=== PATIENT | male | born 1975 | race African-American/Black ===

== ENCOUNTER 2018-03-31 08:11 | Observation (INO) | payer OTHER ==
[2018-03-31] MEDS ORDERED: Morphine 10 MG/ML VIAL ONE (09:34)
[2018-03-31 09:40] LABS: Troponin I Less than 0.010 ng/mL (< 0.028)
[2018-03-31 10:49] VITALS: BMI 38.2
[2018-03-31] MEDS ORDERED: Loperamide HCl 2 MG CAP PO PRN (10:55)
[2018-03-31] MEDS ORDERED: Senokot 8.6 MG TAB PO PRN (10:55)
[2018-03-31] MEDS ORDERED: Ondansetron ODT 4 MG TAB PO PRN (10:55)
[2018-03-31] MEDS ORDERED: Ondansetron HCl/PF 4 MG/2 ML Vial IVP PRN (10:55)
[2018-03-31] MEDS ORDERED: Milk Of Magnesia 30 ML UDCUP PO PRN (10:55)
[2018-03-31] MEDS ORDERED: Zolpidem Tartrate 5 MG TAB PO PRN (10:55)
[2018-03-31] MEDS ORDERED: Mag-Al 1200 mg/1200 mg/30 ML UDCUP PO PRN (10:55)
[2018-03-31] MEDS ORDERED: HYDROcodone/Acetaminophen 5/325 mg Tablet PO PRN (10:55)
[2018-03-31] MEDS ORDERED: Acetaminophen 325 MG TAB PO PRN (10:55)
[2018-03-31 11:22] LABS: Cardiac Risk 4.1 (Less than 4.5)
--- NOTE | 2018-03-31 12:33 | SS ---
DATE OF ADMISSION: 03/31/2018 at 9 a.m. PRIMARY CARE PHYSICIAN: [facility] call admission. REASON FOR ADMISSION: Transfer from [facility] for chest pain. HISTORY OF PRESENT ILLNESS: A 42-year-old -[place] male who was brought from [facility] to local emergency room in [facility] for evaluation of syncope and chest pain. HOSPITAL COURSE: Patient was in [facility] area where he had syncopal episode and subsequen tly 911 was called and patient was brought to [facility]. Patient regained consciousness wit hin few seconds. Patient was also reporting that he was having intermittent chest pain for the last 3 days, but his chest pain was on the right side. It only radiated one time on the right upper extre mity. He was feeling intermittent nausea and diaphoresis. He denies any exertional chest pain. He denies any heaviness. He describes squeezing and sharp in nature. There is no relation of chest shyanne n with food, respiration or activity. He denies any cough. He denies any fever or chills. He denie s any constipation, diarrhea, melena or hematochezia. Patient reports that he has history of hypertension, but he was not taking medication. When he went to [facility] where he was hypertensive, his chest pain was subsided. He had routine b lood test done over there, it was everything unremarkable. He was sent to our emergency room for rul e out acute coronary syndrome. In our emergency room, patient's cardiac enzymes were negative. His EKG was normal. His telemetry m onitor was normal. He was not having any further chest pain. He denies any UTI symptoms. He denies any focal motor or sensory symptoms. He denies any seizure. He denies any headache. He denies any sore throat. REVIEW OF SYSTEMS: The following complete review of systems was negative, unless otherwise mentioned in the HPI or below: Constitutional: Weight loss or gain, ability to conduct usual activities. Skin: Rash, itching. Eyes: Double vision, pain. ENT/Mouth: Nose bleeding, neck stiffness, pain, tenderness. Cardiovascular: Palpitations, dyspnea on exertion, orthopnea. Respiratory: Shortness of breath, wheezing, cough, hemoptysis, fever or night sweats. Gastrointestinal: Poor appetite, abdominal pain, heartburn, nausea, vomiting, constipation, or diarr hea. Genitourinary: Urgency, frequency, dysuria, nocturia. Musculoskeletal: Pain, swelling. Neurologic/Psychiatric: Anxiety, depression. Allergy/Immunologic: Skin rash, bleeding tendency. Please see my HPI for pertinent positive and negative. All other review of systems reviewed and nega tive except as mentioned in the HPI. PAST MEDICAL HISTORY: History of hypertension, but not on any treatment, chronic low back pain, obes ity with BMI 38. PAST SURGICAL HISTORY: Reviewed and negative. PAST PSYCHIATRIC HISTORY: Reviewed and negative. SOCIAL HISTORY: Patient is smoking about 1 pack per day. He denies any alcohol abuse. He denies an y other illicit drug abuse. His urine drug screen positive for cannabinoids at [facility]. FAMILY HISTORY: Maternal side positive for hypertension, coronary artery disease, no family history of cancer or stroke. EMERGENCY ROOM COURSE: Initially at [facility], they started with nitro drip, but that drip was discontinued. In our emergency room, patient was given morphine 2 mg for pain. ALLERGIES: No known drug allergy. CURRENT HOME MEDICATIONS: Patient is on the following medications, but he was not taking medication. Soma 350 mg b.i.d., [place] 10 one tablet q.6 hourly p.r.n., lisinopril 20 mg p.o. daily. PHYSICAL EXAMINATION: VITAL SIGNS: On arrival, blood pressure 158/95, pulse 73, respiratory rate 12, temperature 97.5, sat uration 98% on room air, and weight 127 kilograms. GENERAL: The patient is currently alert, awake, in no acute distress. HEAD: Normocephalic, atraumatic. EYES: Pupils round, reactive to light. Extraocular muscle intact. ENT: Oropharynx within normal limits. Moist mucous membranes. No oral lesion, no pharyngeal erythe ma, no exudate. NECK: Supple, no JVD, no thyromegaly, no carotid bruit. No jugular venous distention. LUNGS: Clear to auscultation without any rhonchi or rales. CARDIAC: S1 and S2 regular without any murmur. ABDOMEN: Soft, bowel sounds present, nontender, and nondistended. No organomegaly, no mass, no supr apubic tenderness. BACK: Examination unremarkable. No CVA tenderness. EXTREMITIES: Upper extremity passive movement of all joints are normal. Lower extremity, no edema. Good peripheral pulsation. SKIN: No skin rash. HEMATOLOGICAL SYSTEM: No lymphadenopathy. PSYCHIATRIC: Normal affect. NEUROLOGIC: Nonfocal examination. CHEST WALL: The patient does have reproducible pain on the right side. SIGNIFICANT LABORATORY DATA AND IMAGING DATA: 1. BMP: Sodium 138, potassium 4.1, chloride 105, carbon dioxide 22, anion gap 15, BUN 9.5, creatini ne 1.0, and calcium 9.2. 2. LFT, alkaline phosphatase 59, AST 12, ALT 12, albumin 3.9. 3. CK 214, CK-MB 0.80, troponin less than 0.010. Troponin negative x2. BNP 51.9. 4. CBC: WBC 13.5, hemoglobin 15.5, platelet 181, INR 0.9. D-dimer negative 0.10. Urinalysis caty l. Urine drug screen negative. Alcohol level less than 10. 5. Currently, cardiac enzymes are negative. Triglyceride 122, cholesterol 134, LDL 77, and HDL 33. 6. Cardiogram, normal sinus rhythm within normal limits. Chest x-ray normal. ASSESSMENT AND PLAN/IMPRESSION: 1. Chest pain. Patient's chest pain description is non-anginal, most likely musculoskeletal pain. For benefit of doubt, we will do stress test for diagnostic reason. His troponin is negative x3. Hi s electrocardiogram is normal. D-dimer is also negative. At this point, we will perform stress test and if that test is negative, then we will consider discharging him back to [facility] later on today. 2. Tobacco abuse disorder. Smoking cessation counseling given. Healthy lifestyle measures discusse d with the patient. 3. Obesity with BMI 38. Dietary education given. Healthy lifestyle measures discussed with the pat ient. Weight loss education given. 4. Hypertension. The patient will resume lisinopril 20 mg p.o. daily. 5. Chronic low back pain. Patient will continue Soma 350 mg b.i.d. and [place] one tablet q.6 hourly p.r.n. 6. Deep venous thrombosis prophylaxis not needed because we are expecting discharge later on today. 7. Gastrointestinal prophylaxis, Pepcid 20 mg p.o. b.i.d. CONTRAINDICATIONS: None. CODE STATUS: Patient is FULL CODE. The patient does not have any surrogate decision maker. Disposi tion plan based on stress test result. DATE OF ADMISSION: 03/31/2018 DATE OF DISCHARGE: 03/31/2018 DIS[facility]GE DISPOSITION: [facility]. PRIMARY DISCHARGE DIAGNOSIS: Chest pain, ruled out acute coronary syndrome, likely musculoskeletal. SECONDARY DISCHARGE DIAGNOSES: Hypertension, medication noncompliance, chronic low back pain, obesit y with body mass index 38, tobacco abuse disorder. PRIMARY PROCEDURES/OPERATIONS: None. RADIOLOGICAL INVESTIGATION: Stress test. SIGNIFICANT LABORATORY DATA: Please see above. CONTRAINDICATIONS: None. CODE STATUS: FULL CODE. INPATIENT CONSULTANTS: None. ALLERGIES: No known drug allergy. DISCHARGE PLAN: Post hospital, patient will be discharged back to [facility]. HOSPITAL COURSE: Please see my HPI for further details. Patient will continue all his previous medi cations. The patient will be discharged later on today if stress test is done today and if this is negative. Patient's syncope is likely related with vasovagal syncope. Currently, we have completely excluded c ardiac etiology at all.
[2018-03-31] MEDS ORDERED: Nitroglycerin 2% Ointment 1 INCH/1 GM Packet TOP SCH (14:00)
--- NOTE | 2018-03-31 14:33 | NM ---
CARDIAC SPECT: HISTORY: A 42-year-old female with chest pain. TECHNIQUE: A myocardial perfusion scan is performed using a single-isotope 1-day protocol with Technetium 99m se stamibi. Eleven mCi were injected intravenously for the rest exam followed by 27 mCi for the stress study. Pharmacologic stress with LexiScan is monitored and interpreted by Dr. Darling. FINDINGS: Homogeneous tracer distribution is seen in the myocardial segments on stress and rest images without fixed or reversible defects. GATED SPECT LVEF: 50%. WALL MOTION EXAM: Normal. IMPRESSION: Normal myocardial perfusion scan. POS: [facility]
[2018-03-31 14:47] LABS: Troponin I Less than 0.010 ng/mL (< 0.028)
[2018-03-31] MEDS ORDERED: Regadenoson 0.4 MG/5 ML SYRINGE ONE (15:24)
[2018-03-31 15:38] VITALS: BP 178/91; TEMP 98.1
--- NOTE | 2018-03-31 17:53 | PDOC.EVN ---
Event Note - Event Note Event Note: stress test is negative his chest pain is musculoskeletal. he has continue his own pain meds and BP meds will discharge to [facility] see keisha croft
[2018-03-31] MEDS ORDERED: Famotidine 20 MG TAB PO SCH (21:00)
[2018-04-01] MEDS ORDERED: Aspirin 325 MG TAB PO SCH (09:00)
[2018-04-01] MEDS ORDERED: Lisinopril 20 MG TAB PO SCH (09:00)
== END 2018-03-31 18:16 ==
LOC: ERS 08:11 → 2SW 09:00
PROVIDERS: ADMIT Internal Medicine; ATTEND Internal Medicine
DX: R07.89 Other chest pain (principal); R55 Syncope and collapse; I10 Essential (primary) hypertension; G89.29 Other chronic pain; M54.5 Low back pain; F17.210 Nicotine dependence, cigarettes, uncomplicated; E66.9 Obesity, unspecified; Z68.38 Body mass index [BMI] 38.0-38.9, adult; Z79.899 Other long term (current) drug therapy; Z91.14 Patient's other noncompliance with medication regimen
CPT/HCPCS: 36415; 78452; 80061; 84484; 93005; 93017; 96365; 96375; A9500; G0378; J2270; J2785

== ENCOUNTER 2018-04-04 15:49 | Observation (INO) | payer OTHER ==
[2018-04-04 16:43] LABS: #Basophils 0.1 thou/uL (0.0-0.2); #Eosinphils 0.1 thou/uL (0.0-0.7); #Lymphocytes 3.9 thou/uL (1.20-3.40); #Monocytes 1.2 thou/uL (0.11-0.59); #Neutrophils 7.9 thou/uL (1.40-6.50); %Eosinophils 1.1 % (0.0-10.0); %Lymphocytes 29.2 % (21.0-51.0); %Monocytes 9.3 % (0.0-10.0); %Neutrophils 59.3 % (42.0-75.0); Hemoglobin 16.1 g/dL (14.0-18.0); Mean Corpuscular HGB CONC 33.3 g/dL (32.0-36.0); Mean Corpuscular Hemoglobin 29.6 pg (27.0-31.0); Mean Corpuscular Volume 88.8 fl (80.0-94.0); Mean Platelet Volume 7.9 fL (7.4-10.4); Platelet Count 240 thou/uL (130-400); RBC Distribution Width 13.5 % (11.5-14.5); Red Blood Cell (RBC) Count 5.45 mill/uL (4.70-6.10); White Blood Cell (WBC) Count 13.2 thou/uL (4.8-10.8)
[2018-04-04 17:03] LABS: ALT (SGPT) 21 U/L (8-55); AST (SGOT) 18 U/L (5-34); Albumin 4.1 g/dL (3.5-5.0); Alkaline Phosphatase 69 U/L (40-150); Anion Gap 12 mmol/L (10-20); BUN (Urea Nitrogen) 15 mg/dL (8.9-20.6); Bilirubin, Total 0.7 mg/dL (0.2-1.2); CK (CPK) 348 U/L (30-200); Calc. Creatinine Clearance 0 mL/min (70-130); Calcium 9.4 mg/dL (7.8-10.44); Carbon Dioxide 22 mmol/L (22-29); Chloride 106 mmol/L (98-107); Estimated GFR-MDRD 87; Globulin 3.8 g/dL (2.4-3.5); Glucose 105 mg/dL (70-105); Lipase 9 U/L (8-78); Protein, Total 7.9 g/dL (6.0-8.3); Sodium 136 mmol/L (136-145)
[2018-04-04 17:07] LABS: CKMB 0.9 ng/mL (0-6.6); Troponin I Less than 0.010 ng/mL (< 0.028)
--- NOTE | 2018-04-04 17:10 | RAD ---
PORTABLE UPRIGHT FRONTAL CHEST RADIOGRAPH 04/04/18 COMPARISON: None. HISTORY: Chest pain. FINDINGS: No pneumothorax, pleural fluid, focal consolidation or alveolar edema. Heart and mediastinal contours are grossly unremarkable. IMPRESSION: No acute findings. POS: [facility]
[2018-04-04] MEDS ORDERED: Nitroglycerin 2% Ointment 1 INCH/1 GM Packet ONE (17:13)
[2018-04-04] MEDS ORDERED: Acetaminophen 325 MG TAB PO PRN (19:50)
[2018-04-04 19:58] VITALS: BMI 37.0
[2018-04-04] MEDS ORDERED: Aspirin 325 MG TAB PO SCH (20:00)
[2018-04-04 20:21] LABS: Troponin I Less than 0.010 ng/mL (< 0.028)
[2018-04-04 23:06] LABS: Troponin I Less than 0.010 ng/mL (< 0.028)
[2018-04-04] MEDS ORDERED: HYDROcodone/Acetaminophen 10/325 mg Tablet PO PRN (23:25)
--- NOTE | 2018-04-05 00:36 | HP ---
PRIMARY CARE PHYSICIAN: The patient is from [facility]. REASON FOR ADMISSION: Chest pain. HISTORY OF PRESENT ILLNESS: A 42-year-old -[place] male who [facility] At that time, patient was hypertensive and he was not taking any medication for his hypertension. He was just arrested to [facility] and from there he was brought to ER for chest pain and syncope. During that admission, patient had a stress test which was normal and patient was disc harged on the same day. Today in the emergency room, he was brought to because of continuous complaint of chest pain. He was initially evaluated at [facility] where EKG and routine blood test was normal. Subs equently, he was transferred to our emergency room for further evaluation. Currently, patient's ches t pain has subsided. The patient was given 2 sublingual nitro during transport as well as the patien t was given aspirin. He describes that chest pain is sharp, stabbing, feeling associated dizziness, mild headache. He denies any radiation of pain. He denies any associated nausea, vomiting, diaphore sis. Today, his routine blood test showed negative cardiac enzymes x3 and all blood test is normal. When I saw this patient, at that time, patient was chest pain free. REVIEW OF SYSTEMS: The following complete review of systems was negative, unless otherwise mentioned in the HPI or below: Constitutional: Weight loss or gain, ability to conduct usual activities. Sk in: Rash, itching. Eyes: Double vision, pain. ENT/Mouth: Nose bleeding, neck stiffness, pain, ten derness. Cardiovascular: Palpitations, dyspnea on exertion, orthopnea. Respiratory: Shortness of breath, wheezing, cough, hemoptysis, fever or night sweats. Gastrointestinal: Poor appetite, abdomi nal pain, heartburn, nausea, vomiting, constipation, or diarrhea. Genitourinary: Urgency, frequency , dysuria, nocturia. Musculoskeletal: Pain, swelling. Neurologic/Psychiatric: Anxiety, depression . Allergy/Immunologic: Skin rash, bleeding tendency. Please see my HPI for pertinent positive and negative. All other review of system reviewed and negative except as mentioned in the HPI. PAST MEDICAL HISTORY: Chronic low back pain, hypertension, obesity. PAST SURGICAL HISTORY: Reviewed and negative. PAST PSYCHIATRIC HISTORY: Reviewed and negative. SOCIAL HISTORY: The patient has history of smoking about 1 pack per day. He denies any alcohol abus e. He denies any other illicit drug abuse. FAMILY HISTORY: Mother has history of pacemaker. No strong family history of premature coronary art roger disease, stroke, or cancer. EMERGENCY ROOM COURSE: The patient is given nitro patch and IV fluid. The patient was given nitrogl ycerin sublingual and aspirin on the transport. ALLERGIES: No known drug allergy. CURRENT HOME MEDICATIONS: Soma 350 mg p.o. b.i.d., [place] 10 one tablet q.6 hourly p.r.n., lisinopril 10 mg p.o. daily. PHYSICAL EXAMINATION: VITAL SIGNS: On arrival, blood pressure 150/95, pulse 101, respiratory rate 18, temperature 98.7, sa turation 97% on room air, weight 127 kilograms. GENERAL: The patient is currently alert, awake, no acute distress. HEENT: Head normocephalic, atraumatic. Eyes: Pupils round, reactive to light. Extraocular muscle intact. ENT: Oropharynx within normal limits. Moist mucous membrane, no oral lesion, no pharyngeal erythema , no exudate. NECK: Supple, no JVD, no thyromegaly, no carotid bruit, no jugular venous distention. LUNGS: Clear to auscultation without any rhonchi or rales. CARDIAC: S1, S2 regular without any murmur. ABDOMEN: Soft, obesity present. Bowel sounds present, nontender, nondistended. No organomegaly, no mass, no suprapubic tenderness. BACK: Unremarkable, no CVA tenderness. EXTREMITIES: Upper extremities: Passive movement of all joints are normal. Lower extremities: No edema. Good peripheral pulsation, no calf tenderness. SKIN: No skin rash. HEMATOLOGICAL SYSTEM: No lymphadenopathy. PSYCHIATRIC: Normal affect. SIGNIFICANT LABORATORY DATA: CBC: WBC 13.2, hemoglobin 16.1, platelet 240. BMP: Sodium 136, potas sium 4.0, chloride 106, carbon dioxide 22, BUN 15, creatinine 1.13, glucose 105, calcium 9.4. LFT: AST 18, ALT 21, alkaline phosphatase 69, albumin 4.1. CK 348. Cardiac enzymes negative x3. BNP les s than 10. Lipase 9. ASSESSMENT AND PLAN/IMPRESSION: 1. Chest pain. This patient's chest pain description is completely nonspecific. He has a little bi t reproducible discomfort on the left side of the chest. He had negative stress test just few days a go and currently he has 3 negative cardiac enzymes. This patient may have underlying drug seeking be havior. The patient does have chronic pain disorder. At this point, this patient does not need any more investigation. We will consider discharging him home early in the morning back to intermediate. 2. Hypertension. We will continue lisinopril 10 mg p.o. daily. 3. Obesity with BMI of 37. Diet reeducation given, weight loss education given. 4. Chronic pain disorder. The patient will continue his pain medications, Soma 350 mg p.o. b.i.d. a nd [place] 10 one tablet q.6 hourly p.r.n. for pain. 5. Deep venous thrombosis prophylaxis not needed because we are expecting discharge tomorrow. 6. Gastrointestinal prophylaxis, Pepcid 20 mg p.o. b.i.d. 7. Code status: The patient is FULL CODE. The patient does not have any surrogate decision maker. Disposition plan, we will consider discharging him early in the morning, tomorrow morning. I doubt h e needs any more investigation at this point.
[2018-04-05] MEDS ORDERED: Zolpidem Tartrate 5 MG TAB PO PRN (02:12)
[2018-04-05] MEDS ORDERED: Senokot 8.6 MG TAB PO PRN (02:12)
[2018-04-05] MEDS ORDERED: Acetaminophen 325 MG TAB PO PRN (02:12)
[2018-04-05] MEDS ORDERED: Ondansetron ODT 4 MG TAB PO PRN (02:12)
[2018-04-05] MEDS ORDERED: Loperamide HCl 2 MG CAP PO PRN (02:12)
[2018-04-05] MEDS ORDERED: Milk Of Magnesia 30 ML UDCUP PO PRN (02:12)
[2018-04-05] MEDS ORDERED: Ondansetron HCl/PF 4 MG/2 ML Vial IVP PRN (02:12)
[2018-04-05] MEDS ORDERED: Mag-Al 1200 mg/1200 mg/30 ML UDCUP PO PRN (02:12)
[2018-04-05] MEDS ORDERED: Lisinopril 20 MG TAB PO SCH (09:00)
[2018-04-05] MEDS: Famotidine 20 MG TAB PO SCH ×2 (09:32→20:41)
[2018-04-05 10:30] LABS: Amphetamine Not Detected (NotDetected); Barbiturates Screen Not Detected (NotDetected); Benzodiazepine Screen Not Detected (NotDetected); Cocaine Metabolite Screen Not Detected (NotDetected); Medtox Control Line Valid? VALID (VALID); Medtox Reader # READER 1; Methadone Not Detected (NotDetected); Methamphetamine Not Detected (NotDetected); Opiate Screen Not Detected (NotDetected); Oxycodone Screen Not Detected (NotDetected); Phencyclidine (PCP) Not Detected (NotDetected); THC/Cannabinoid Screen Detected (NotDetected); Tricyclic Screen Not Detected (NotDetected)
--- NOTE | 2018-04-05 16:28 | PDOC.PN ---
- Subjective Encounter Start Date: 04/05/18 Encounter Start Time: 11:00 Pt seen for followup re: chest pain. Denies chest pain, shortness of breath, fevers or chills. - Objective Resuscitation Status: Resuscitation Status FULL:Full Resuscitation MAR Reviewed: Yes Vital Signs & Weight: Vital Signs (12 hours) Temp Pulse Resp BP BP Pulse Ox 04/05/18 15:36 97.9 F 83 16 141/86 H 100 04/05/18 11:00 98.2 F 92 12 140/86 97 04/05/18 09:31 125/67 04/05/18 08:00 98.2 F 92 12 04/05/18 07:42 97.9 F 84 18 125/67 98 I&O: 04/04/18 04/05/18 04/06/18 06:59 06:59 06:59 Intake Total 240 480 Output Total 350 Balance -110 480 Result Diagrams: 04/04/18 16:34 04/04/18 16:34 EKG Reviewed by me: Yes (Tele: NSR, lateral T wave inversions) Phys Exam - Physical Examination Obese HEENT: moist MMs, sclera anicteric, oral pharynx no lesions, 2+ tonsils Neck: no nodes, no JVD, supple, full ROM Respiratory: no wheezing, no rales, no rhonchi, clear to auscultation bilateral Cardiovascular: RRR, no rub S1, S2 Gastrointestinal: soft, non-tender, no distention, positive bowel sounds Neurological: moves all 4 limbs Psychiatric: normal affect Dx/Plan (1) Chest pain Code(s): R07.9 - CHEST PAIN, UNSPECIFIED Status: Acute Comment: Etiology unclear. Pt had normal stress test a few days ago. However, he does have new T wave inversions. Consult cardiology for opinion and help with management. (2) Rhabdomyolysis Code(s): M62.82 - RHABDOMYOLYSIS Status: Acute Comment: IV hydration and recheck CK level. Renal function is normal. (3) Hypertension Code(s): I10 - ESSENTIAL (PRIMARY) HYPERTENSION Status: Chronic Comment: controlled (4) Obesity (BMI 30-39.9) Code(s): E66.9 - OBESITY, UNSPECIFIED Status: Chronic Comment: stable - Plan * . Review of Systems - Review of Systems Constitutional: negative: fever, chills, sweats, weakness, malaise Respiratory: negative: Cough, Shortness of Breath, SOB with Excertion, Pleuritic Pain, Wheezing Cardiovascular: negative: chest pain, palpitations, orthopnea, paroxysmal nocturnal dyspnea, edema, light headedness Gastrointestinal: negative: Nausea, Vomiting, Abdominal Pain, Diarrhea, Constipation, Melena, Hematochezia Genitourinary: negative: Dysuria, Frequency, Incontinence, Hematuria, Retention Skin: negative: Rash, Lesions, Darryl, Bruising - Medications/Allergies Allergies/Adverse Reactions: Allergies Allergy/AdvReac Type Severity Reaction Status Date / Time No Known Allergies Allergy Verified 04/04/18 20:06 Medications: Current Medications Acetaminophen (Tylenol) 650 mg PO Q4H PRN PRN Reason: Headache/Fever or Pain Last Admin: 04/05/18 04:22 Dose: 650 mg Hydrocodone Bitart/Acetaminophen ([place] 10/325) 1 tab PO Q6H PRN PRN Reason: Pain Al Hydroxide/Mg Hydroxide (Maalox) 30 ml PO Q6H PRN PRN Reason: Heartburn or Indigestion Carisoprodol (Soma) 350 mg PO BID [facility] Last Admin: 04/05/18 09:31 Dose: 350 mg Famotidine (Pepcid) 20 mg PO BID [facility] Last Admin: 04/05/18 09:32 Dose: 20 mg Lisinopril (Zestril) 10 mg PO DAILY [facility] Last Admin: 04/05/18 09:31 Dose: 10 mg Loperamide HCl (Imodium) 2 mg PO PRN PRN PRN Reason: Diarrhea/Loose Stools Magnesium Hydroxide (Milk Of Magnesium) 30 ml PO DAILYPRN PRN PRN Reason: Constipation Ondansetron HCl (Zofran Odt) 4 mg PO Q6H PRN PRN Reason: Nausea/Vomiting Ondansetron HCl (Zofran) 4 mg IVP Q6H PRN PRN Reason: Nausea/Vomiting Senna (Senokot) 2 tab PO HSPRN PRN PRN Reason: Constipation Zolpidem Tartrate (Ambien) 5 mg PO HSPRN PRN PRN Reason: Insomnia
[2018-04-05] MEDS ORDERED: Sodium Chloride 0.9% 1,000 ML IV SCH ×2 (16:30→20:00)
--- NOTE | 2018-04-05 19:15 | CON ---
DATE OF CONSULTATION: 04/05/2018 CARDIOLOGY CONSULTATION REASON FOR CONSULTATION: Chest pain. HISTORY OF PRESENT ILLNESS: Mr. Laird is a 42-year-old man. He was brought here for chest pain on 10/2017. The pain was atypical for angina. He underwent stress testing which was normal. Ejection fraction is estimated at 50%, normal myocardial perfusion scan. Then, a normal stress and rest. The patient does have history of hypertension. He was brought back to the hospital here with recurre nt chest pain and he said it is sharp, it is very well localized. He points to very small area in th e lower substernal area. He said that it is sharp and negative as mentioned is localized to that one small area did not have pressure, heaviness, or squeezing typical of angina. He is feeling fine now. PAST MEDICAL HISTORY: History of hypertension. He said has been difficult to control. SOCIAL HISTORY: Currently incarcerated. ALLERGIES: None known. SOCIAL HISTORY: Smokes one pack of cigarettes per day. PHYSICAL EXAMINATION: GENERAL: This is a large statured gentleman, 6 feet 1 inches tall, 280 pounds. HEENT: Sclerae nonicteric. Mouth mucous membranes moist. NECK: Supple, no lymphadenopathy. LUNGS: Clear, no wheezing, rales or rhonchi. CARDIAC: Normal S1, normal S2. There is no murmur, rub or gallop. ABDOMEN: Soft, nontender, no hepatosplenomegaly. EXTREMITIES: Warm, dry, no clubbing or cyanosis. There is no edema. Peripheral pulses are intact p edal and dorsalis pedis pulses bilaterally. PERTINENT LABORATORY DATA: The LDL cholesterol was 77. Troponin levels were all normal. BNP was no rmal. An EKG from 03/30/2018 which was within normal limits. That was done at 20:29 on the EKG yest erday, there was some T-wave inversion in lead II, aVF and biphasic T waves in V4, V5, V6 which is pr esent on the followup EKG yesterday and then somewhat better today, but still present, as mentioned e nzymes are all normal. ASSESSMENT: 1. History of hypertension. 2. Chest pain, somewhat atypical for angina. 3. EKG changes of uncertain significance could potentially be ischemia, but it would seem less likel y with normal troponin levels and normal perfusion scan with atypical chest pain at age 42. Also, hi s cholesterol level is not elevated. Could also be related to left ventricular hypertrophy. PLAN: I discussed this with the gentleman could proceed two cardiac catheterizations for definitive diagnosis. I discussed the risk of stroke, heart attack, iodine allergy, loss of blood supply to the leg or kidney, explained to him that this is low risk, but it is a potential complication of cardiac catheterization that did explain to him the cardiac catheterization is the most definitive test to t ell for sure whether he has coronary disease. The patient does not wish to have that done. Therefor e, we will do the followin. We will reduce YAYA inhibitor. He says he has a cough and it does not seem to be controlling his blood pressure well, also when he gets high. It seems to have blood draw make him lightheaded. 2. Add amlodipine 5 mg a day. 3. Echocardiogram to see if he has left ventricular hypertrophy on echocardiogram. If he indeed has significant LVH that would be further evidence that is what is causing his EKG changes. As mentione d, he declines cardiac catheterization.
[2018-04-05 20:04] VITALS: BP 144/94; TEMP 97.5
[2018-04-06] MEDS ORDERED: Lisinopril 5 MG TAB PO SCH (09:00)
[2018-04-06] MEDS ORDERED: Amlodipine 5 MG TAB PO SCH (09:00)
--- NOTE | 2018-04-07 02:29 | DIS ---
DATE OF ADMISSION: 04/04/2018 The patient left against medical advice on 04/05/2018. PRIMARY CARE PROVIDER: Unknown. CONSULTATIONS DURING THIS HOSPITALIZATION: Cardiology, Dr. Pringle. HOSPITAL COURSE: Mr. Laird is a pleasant 42-year-old gentleman who was admitted to [facility] on 04/04/2018 for chest pain. He was monitored on telemetry. He had normal troponin levels. Because of concern over EKG changes, he was seen by Cardiology Service. Cardiology Service recommended cardiac catheterization. The patient did not wish to have cardiac catheterization. He left the hospital against medical advice on 04/05/2018.
== END 2018-04-05 20:44 | disposition left against medical advice (07) ==
LOC: ERS 15:49 → 2SW 19:41
PROVIDERS: ADMIT Internal Medicine; ATTEND Internal Medicine
DX: R07.9 Chest pain, unspecified (principal); Z53.21 Procedure and treatment not carried out due to patient leaving prior to being seen by health care provider; I10 Essential (primary) hypertension; F17.210 Nicotine dependence, cigarettes, uncomplicated; M62.82 Rhabdomyolysis; E66.9 Obesity, unspecified; G89.29 Other chronic pain; Z79.899 Other long term (current) drug therapy; Z68.37 Body mass index [BMI] 37.0-37.9, adult
CPT/HCPCS: 36415; 71045; 80053; 80306; 82553; 83690; 83880; 84484; 85025; 85379; 93005; 93010; 96360; 96361; G0378

== ENCOUNTER 2019-01-06 22:19 | Observation (INO) | payer OTHER ==
[2019-01-06] MEDS ORDERED: Nitroglycerin 2% Ointment 1 INCH/1 GM Packet ONE (22:33)
[2019-01-06] MEDS ORDERED: Morphine 4 MG/ML VIAL ONE (22:33)
[2019-01-06 23:37] LABS: #Basophils 0.2 thou/uL (0.0-0.2); #Eosinphils 0.1 thou/uL (0.0-0.7); #Lymphocytes 5.3 thou/uL (1.20-3.40); #Neutrophils 7.9 thou/uL (1.40-6.50); %Basophils 1.3 % (0.0-1.0); %Eosinophils 0.9 % (0.0-10.0); %Lymphocytes 36.4 % (21.0-51.0); %Monocytes 6.7 % (0.0-10.0); %Neutrophils 54.8 % (42.0-75.0); Hemoglobin 14.9 g/dL (14.0-18.0); Mean Corpuscular HGB CONC 31.1 g/dL (32.0-36.0); Mean Corpuscular Hemoglobin 28.5 pg (27.0-31.0); Mean Corpuscular Volume 91.5 fL (78.0-98.0); Mean Platelet Volume 8.6 fL (7.4-10.4); Platelet Count 215 thou/uL (130-400); RBC Distribution Width 12.8 % (11.5-14.5); Red Blood Cell (RBC) Count 5.22 mill/uL (4.70-6.10); White Blood Cell (WBC) Count 14.5 thou/uL (4.8-10.8)
[2019-01-06 23:43] LABS: INR-International Normal Ratio 1.1; PTT 30.2 SEC (22.9-36.1); Prothrombin Time 13.8 SEC (12.0-14.7)
[2019-01-06 23:59] LABS: ALT (SGPT) 13 U/L (8-55); AST (SGOT) 9 U/L (5-34); Albumin 3.9 g/dL (3.5-5.0); Alkaline Phosphatase 63 U/L (40-150); Anion Gap 12 mmol/L (10-20); BUN (Urea Nitrogen) 12 mg/dL (8.9-20.6); Bilirubin, Total 1.5 mg/dL (0.2-1.2); Calc. Creatinine Clearance 0 mL/min (70-130); Calcium 9.4 mg/dL (7.8-10.44); Carbon Dioxide 25 mmol/L (22-29); Chloride 105 mmol/L (98-107); Estimated GFR-MDRD 90; Globulin 3.4 g/dL (2.4-3.5); Glucose 87 mg/dL (70-105); Potassium 4.1 mmol/L (3.5-5.1); Protein, Total 7.3 g/dL (6.0-8.3); Sodium 138 mmol/L (136-145)
[2019-01-07 00:02] LABS: Troponin I Less than 0.010 ng/mL (< 0.028)
[2019-01-07] MEDS ORDERED: Morphine 4 MG/ML VIAL SLOW IVP PRN (03:18)
[2019-01-07 03:45] LABS: Troponin I Less than 0.010 ng/mL (< 0.028)
[2019-01-07] MEDS ORDERED: Nitroglycerin 0.4 MG TAB (25 Tab Bottle) PO PRN (04:32)
[2019-01-07] MEDS ORDERED: Ondansetron ODT 4 MG TAB PO PRN (04:33)
[2019-01-07] MEDS ORDERED: Senokot S 8.6-50 MG TAB PO PRN (04:33)
[2019-01-07] MEDS ORDERED: Acetaminophen 325 MG TAB PO PRN (04:33)
[2019-01-07] MEDS ORDERED: Calcium Carbonate 500 MG ChewTAB PO PRN (04:33)
[2019-01-07] MEDS ORDERED: Ondansetron PF 4 MG/2 ML Vial IVP PRN (04:33)
[2019-01-07] MEDS ORDERED: Labetalol HCl 100 MG/20 ML VIAL SLOW IVP PRN (04:35)
[2019-01-07] MEDS ORDERED: cloNIDine 0.1 MG TAB PO PRN (04:35)
--- NOTE | 2019-01-07 05:15 | HP ---
CHIEF COMPLAINT: Chest discomfort. HISTORY OF PRESENT ILLNESS: The patient is a 43-year-old male with hypertension and negative stress test last year, presented to the emergency room with chest discomfort. In March 2018, the patient was admitted at this facility with chest discomfort. His troponins were negative. He underwent Cardiolite stress test that was negative for reversible ischemia. Ejection fraction was 50% without any wall motion abnormality. He was subsequently discharged home. Four days later, the patient presented to the hospital with chest discomfort. He was evaluated by Cardiology, Dr. Pringle. Dr. Pringle recommended a cardiac catheterization due to ongoing chest discomfort. However, the patient left against medical advice. The patient is currently incarcerated over the last week. He presented to [facility] [address] with chest discomfort that has been ongoing for last year or so. His chest discomfort has got worse over the last 2 months. He also has associated nausea with one episode of vomiting earlier today. He gets intermittent palpitations during this episode. No diaphoresis or syncope reported. He denies any exertional dyspnea, paroxysmal nocturnal dyspnea, or leg swelling. The pain radiates to his left arm. It is moderate in intensity, substernal, dull in nature. He denies recent immobilization travel or history of thromboembolism. In the emergency room at [facility], his EKG showed sinus rhythm with nonspecific ST-T wave changes especially in lateral leads. His troponin was negative. His initial vital signs showed temperature 97.2, systolic blood pressure 155 with diastolic blood pressure of 87, pulse rate of 85 with respirations of 18, O2 saturation 100% on room air. He received Zofran with nitroglycerin patch in the emergency room. His D-dimer was less than 0.27. The patient had a near syncopal episode at the shelter today, for which he was brought to the emergency room. PAST MEDICAL HISTORY: 1. Hypertension. 2. Obesity with a BMI of 34.2. 3. Chronic low back pain. 4. Negative Cardiolite stress test last year. PAST SURGICAL HISTORY: Reviewed with the patient and none. ALLERGIES: NO KNOWN DRUG ALLERGIES. CURRENT HOME MEDICATION: Lisinopril 10 mg p.o. daily. SOCIAL HISTORY: The patient is currently incarcerated over the last week. He smokes up to one pack a day. Denies any alcohol or drug abuse. He has a history of cannabis abuse. FAMILY HISTORY: Mother has pacemaker. He denies any premature coronary artery disease in his family. REVIEW OF SYSTEMS: All other review of systems were reviewed and were found negative. PHYSICAL EXAMINATION: VITAL SIGNS: As discussed above. GENERAL: A 43-year-old male, in no apparent distress. Chest discomfort has improved after nitroglycerin patch. HEENT: Head, atraumatic and normocephalic. Sclerae anicteric. Moist mucous membranes. No oral lesion. NECK: Supple. No JVD. No carotid bruits. LUNGS: Clear to auscultation bilaterally. No wheezing, rales, or rhonchi. HEART: S1 and S2 present. Regular rate and rhythm. No murmurs, rubs, or gallops appreciated. ABDOMEN: Soft, bowel sounds present. No rebound or guarding. No costovertebral angle tenderness. EXTREMITIES: No edema or calf tenderness. NEUROLOGIC: Grossly nonfocal, moves all 4 extremities. PSYCHIATRIC: Alert, awake, oriented x3. SKIN: Warm and dry. LYMPH NODES: No palpable lymph nodes in the neck. PERIPHERAL VASCULAR: Radial pulses palpable bilaterally. MUSCULOSKELETAL: No joint swelling, or tenderness. LABORATORY FINDINGS: Sodium 138, potassium 4.4, chloride 104, bicarb 25, BUN 13.2, creatinine 1.2. LFTs in normal range. Troponin was negative. WBC count of 15 with hemoglobin 15.5, hematocrit 47.1, platelet of 252. EKG by my review as discussed above. Chest x-ray was probably not done at [facility]. IMPRESSION: 1. Chest discomfort with near syncope, rule out acute coronary syndrome. 2. Hypertension. 3. Obesity with a BMI of 34.2. 4. Cannabis abuse. 5. Ongoing tobacco abuse. 6. Medication noncompliance. 7. Negative Cardiolite stress test last year. PLAN: The patient will be monitored on the telemetry unit. We will obtain serial troponin. Echocardiogram will be obtained. We will get a chest x-ray due to mild leukocytosis. We will recheck CBC in a.m. Lifestyle modification was emphasized. We will consider cardiology consultation if his chest pain persists. Plan of care was discussed with the patient. He stated understanding. Job ID: [id number]
[2019-01-07 07:34] LABS: Troponin I Less than 0.010 ng/mL (< 0.028)
[2019-01-07 07:49] LABS: Bilirubin Negative (Negative); Blood, Urine Negative (Negative); Clarity CLEAR (Clear); Glucose, Urine (Dipstick) Negative (Negative); Leukocyte Moderate (Negative); Nitrite Negative (Negative); Protein, Urine (Dipstick) Negative (Neg-Trace)
[2019-01-07 07:52] LABS: Hyaline Casts/LPF 4-6 HYALINE CAST LPF (0-3 Hyaline); Pathc Cast-AUWi Flag 0.27 (0-2.49); RBC/HPF 0-3 HPF (0-3); Squamous Epithelial 0-3 HPF (0-3)
[2019-01-07] MEDS ORDERED: Carvedilol 3.125 MG TAB PO SCH (08:00)
[2019-01-07] MEDS ORDERED: Lisinopril 10 MG TAB PO SCH (09:00)
[2019-01-07] MEDS ORDERED: Enoxaparin Sodium 40 MG/0.4 ML SYRINGE SC SCH (09:00)
[2019-01-07] MEDS ORDERED: Famotidine 20 MG TAB PO SCH (09:00)
[2019-01-07] MEDS ORDERED: Aspirin 325 mg Enteric Coated Tablet PO SCH (09:00)
[2019-01-07] MEDS ORDERED: Aspirin 325 MG TAB PO SCH (09:00)
[2019-01-07 09:05] LABS: Bacteria/HPF Rare-Few HPF (None Seen)
[2019-01-07 09:06] LABS: Yeast-All Forms None Seen HPF (None Seen)
--- NOTE | 2019-01-07 09:55 | RAD ---
SINGLE VIEW OF THE CHEST: COMPARISON: 04/04/2018. HISTORY: Chest pain. FINDINGS: Single view of the chest shows a normal sized cardiomediastinal silhouette. There is no evidence of c onsolidation, mass, or pleural effusion. The bones are unremarkable. IMPRESSION: No evidence of acute cardiopulmonary disease. POS: [facility]
[2019-01-07] MEDS ORDERED: Iopamidol 370 76% 100 ML VIAL ONE (10:12)
[2019-01-07] MEDS ORDERED: Adenosine 6 MG/2 ML VIAL ONE (10:56)
[2019-01-07] MEDS ORDERED: Nitroglycerin 100MG/250ML BOT 250 ML ONE (10:56)
[2019-01-07] MEDS ORDERED: Verapamil 5 MG/2 ML VIAL ONE (10:56)
[2019-01-07] MEDS ORDERED: Heparin 10,000 UNITS/1 ML VIAL ONE (10:56)
[2019-01-07] MEDS ORDERED: Midazolam HCl 2 mg/2 ml Vial ONE (11:50)
[2019-01-07] MEDS ORDERED: Fentanyl 100 MCG/2 ML VIAL ONE (11:51)
--- NOTE | 2019-01-07 12:37 | CON ---
DATE OF CONSULTATION: REASON FOR CONSULTATION: Recurrent chest pain. HISTORY OF PRESENT ILLNESS: Mr. Laird is a 43-year-old gentleman with recurrent chest pain. He states the pain lasted for several minutes. It is [id number] in nature. He has a previous history of tobacco abuse. He underwent a noninvasive stress study and was evaluated by Dr. Chelly Pringle in March 2018. His stress study at that time was negative. PAST MEDICAL HISTORY: Hypertension, obesity, chronic low back pain, tobacco abuse. ALLERGIES: NONE. HOME MEDICATIONS: Lisinopril. SOCIAL HISTORY: As above. He is currently incarcerated over the last week. FAMILY HISTORY: Negative for CAD. REVIEW OF SYSTEMS: Recent 10-point review of systems is reviewed and as above, otherwise negative. PHYSICAL EXAMINATION: GENERAL: Patient is a pleasant gentleman, who is in no acute distress. The patient appears their stated age. VITAL SIGNS: Blood pressure 122/77, pulse 75, temperature 97.4. NEUROLOGIC: The patient is alert and oriented x3 with no focal neurologic deficits. HEENT: Sclerae without icterus. Mouth has moist mucous membranes with normal pallor. NECK: No JVD. Carotid upstroke brisk. No bruits bilaterally. LUNGS: Clear to auscultation with unlabored respirations. BACK: No scoliosis or kyphosis. CARDIAC: Regular rate and rhythm with normal S1 and S2. No S3 or S4 noted. No significant rubs, murmurs, thrills, or gallops noted throughout the precordium. PMI is not displaced. There is no parasternal heave. ABDOMEN: Soft, nontender, nondistended. No peritoneal signs present. No hepatosplenomegaly. No abnormal striae. EXTREMITIES: 2+ femoral and 2+ dorsalis pedis pulses. No cyanosis, clubbing, or edema. SKIN: No gross abnormalities. PERTINENT LABORATORY DATA: CK and troponin, negative. EKG shows normal sinus rhythm with ST wave changes suggesting LVH. IMPRESSION: Chest pain. RECOMMENDATIONS: At this point, the patient has had a stress study within the last year. He continues to have hospitalizations for the above. We therefore recommend medical therapy versus coronary angiography. I am concerned about medical therapy given recurrent symptoms. We would therefore recommend coronary angio. I discussed proceeding in full detail with Mr. Laird. Risks included, but not limited to . All questions were answered given the above. He agrees to proceed with the above procedure. Job ID: [id number]
[2019-01-07 16:00] LABS: #Basophils 0.1 thou/uL (0.0-0.2); #Eosinphils 0.1 thou/uL (0.0-0.7); #Lymphocytes 3.6 thou/uL (1.20-3.40); #Monocytes 0.7 thou/uL (0.11-0.59); %Basophils 1.1 % (0.0-1.0); %Eosinophils 1.1 % (0.0-10.0); %Lymphocytes 28.4 % (21.0-51.0); %Monocytes 5.3 % (0.0-10.0); %Neutrophils 64.2 % (42.0-75.0); Hemoglobin 14.6 g/dL (14.0-18.0); Mean Corpuscular HGB CONC 31.4 g/dL (32.0-36.0); Mean Corpuscular Hemoglobin 29.1 pg (27.0-31.0); Mean Corpuscular Volume 92.7 fL (78.0-98.0); Mean Platelet Volume 8.3 fL (7.4-10.4); Platelet Count 217 thou/uL (130-400); White Blood Cell (WBC) Count 12.5 thou/uL (4.8-10.8)
[2019-01-07 16:30] VITALS: BP 126/75; TEMP 97.6
[2019-01-07] MEDS ORDERED: Atorvastatin Calcium 10 MG TAB PO SCH (21:00)
--- NOTE | 2019-01-13 09:24 | EKG ---
Test Reason : Blood Pressure : / mmHG Vent. Rate : 072 BPM Atrial Rate : 072 BPM P-R Int : 124 ms QRS Dur : 096 ms QT Int : 410 ms P-R-T Axes : 020 067 003 degrees QTc Int : 448 ms Normal sinus rhythm ST elevation, consider early repolarization, pericarditis, or injury Nonspecific ST and T wave abnormality Abnormal ECG Limited ST elevation V2, V3 Resolving T wave inversions II, III 2/10 chest pain Confirmed by BRAIN SIMPSON ([id number]), photograph editor SUKUMAR NAVA ([id number]) on 01/13/2019 9:23:45 AM Referred By: Confirmed By:BRAIN SIMPSON
== END 2019-01-07 16:59 | disposition home or self-care (01) ==
LOC: ERS 22:19 → ERHOLD 23:59 → INTOOBSV 23:59 → 2SW 01-07 01:35
PROVIDERS: ADMIT Internal Medicine; ATTEND Internal Medicine
PROC: 4A023N7 Measurement of Cardiac Sampling and Pressure, Left Heart, Percutaneous Approach (ICD-10-PCS; principal; 2019-01-07)
PROC: B2111ZZ Fluoroscopy of Multiple Coronary Arteries using Low Osmolar Contrast (ICD-10-PCS; 2019-01-07)
DX: R07.89 Other chest pain (principal); R55 Syncope and collapse; I10 Essential (primary) hypertension; G89.29 Other chronic pain; M54.5 Low back pain; F17.210 Nicotine dependence, cigarettes, uncomplicated; F12.10 Cannabis abuse, uncomplicated; E78.00 Pure hypercholesterolemia, unspecified; E11.9 Type 2 diabetes mellitus without complications; E66.9 Obesity, unspecified; Z68.34 Body mass index [BMI] 34.0-34.9, adult; Z79.899 Other long term (current) drug therapy; Z91.14 Patient's other noncompliance with medication regimen
CPT/HCPCS: 36415; 71045; 80053; 81001; 84484; 85025; 85610; 85730; 93005; 93306; 93458; 94760; 96372; 96374; 99152; 99153; 99406; C1769; G0378; J0153; J1644; J1650; J2250; J2270; J3010; Q9967

== ENCOUNTER 2019-01-21 04:03 | Observation (INO) | payer OTHER ==
[2019-01-21] MEDS ORDERED: Aspirin Chewable 81 MG TAB ONE (04:27)
[2019-01-21] MEDS ORDERED: Nitroglycerin 50 MG/250 ML BOT 250 ML ONE (04:27)
[2019-01-21] MEDS ORDERED: Zolpidem Tartrate 5 MG TAB PO PRN (05:04)
[2019-01-21] MEDS ORDERED: Acetaminophen 325 MG TAB PO PRN (05:04)
[2019-01-21 07:49] LABS: Troponin I Less than 0.010 ng/mL (< 0.028)
[2019-01-21] MEDS ORDERED: Ondansetron ODT 4 MG TAB PO PRN (08:59)
[2019-01-21] MEDS ORDERED: Ondansetron PF 4 MG/2 ML Vial IVP PRN (08:59)
[2019-01-21] MEDS ORDERED: Nitroglycerin 0.4 MG TAB (25 Tab Bottle) PO PRN (08:59)
[2019-01-21] MEDS ORDERED: Calcium Carbonate 500 MG ChewTAB PO PRN (08:59)
[2019-01-21] MEDS ORDERED: Aspirin 325 mg Enteric Coated Tablet PO SCH (09:00)
[2019-01-21] MEDS ORDERED: Famotidine 20 MG TAB PO SCH (09:00)
[2019-01-21] MEDS ORDERED: Enoxaparin Sodium 40 MG/0.4 ML SYRINGE SC SCH (09:00)
--- NOTE | 2019-01-21 09:15 | PDOC.EVN ---
Event Note - Event Note Event Note: Cath was normal [address] Azevedo - Yoel beth NTG drip. Change to Observation/Tele
[2019-01-21] MEDS ORDERED: Famotidine 20 MG TAB ONE (09:21)
[2019-01-21] MEDS ORDERED: Lisinopril 10 MG TAB ONE (09:21)
[2019-01-21] MEDS ORDERED: Enoxaparin Sodium 40 MG/0.4 ML SYRINGE ONE (09:21)
--- NOTE | 2019-01-21 09:58 | HP ---
PRIMARY CARE PHYSICIAN: The patient is an inmate. CHIEF COMPLAINT: Chest discomfort. HISTORY OF PRESENT ILLNESS: The patient is a 43-year-old male with hypertension, obesity with a recent cardiac workup, presented to the emergency room with chest discomfort along with syncopal episode at the facility. The patient was admitted at this facility two weeks ago for chest discomfort. He underwent a cardiac cath and was subsequently discharged. The findings of cardiac cath is unavailable at this time. I do not see a discharge summary from that admission. Per the patient's report, he was found to have coronary artery disease; however, he declined stent placement. The patient was brought in to [facility] with chest discomfort that started around midnight. It was precordial, radiating to his left arm. He was diaphoretic and had a syncopal episode. The chest discomfort was pressure-like. He denies any aggravating or relieving factor. He also had some lower abdominal discomfort with a negative noncontrast CT scan at [facility]. His troponins were negative. EKG showed nonspecific ST-T wave changes in the inferior lead. He denies any diarrhea, constipation, recent immobilization, fever, or chills. PAST MEDICAL HISTORY: 1. Hypertension. 2. Obesity with a BMI of 34. 3. Negative Cardiolite stress last year. 4. Chronic low back pain. 5. Bipolar disorder. PAST SURGICAL HISTORY: Cardiac cath two weeks ago. Report unavailable at this time. ALLERGIES: NO KNOWN DRUG ALLERGIES. CURRENT HOME MEDICATIONS: The patient is unable to recall any of his home medications. He was discharged on: 1. Aspirin 325 mg daily. 2. Lipitor 10 mg q.h.s. 3. Carvedilol 3.125 mg b.i.d. 4. Pepcid 20 mg b.i.d. 5. Lisinopril 20 mg daily. SOCIAL HISTORY: The patient is an inmate. He has a history of tobacco smoking up to one pack a day. No alcohol or drug use. He also has a history of cannabis abuse. FAMILY HISTORY: Mother with pacemaker. He denies any premature coronary artery disease in his family. REVIEW OF SYSTEMS: The patient denies any focal deficit. All other review of systems were reviewed and were found negative. PHYSICAL EXAMINATION: VITAL SIGNS: On ER arrival; temperature 99.3, respirations of 20, pulse rate of 83, blood pressure of 204/161 with O2 saturation of 99% on room air. GENERAL: A 43-year-old male, in no apparent distress. Pain controlled with nitroglycerin drip. HEENT: Head, atraumatic and normocephalic. Sclerae are anicteric. Moist mucous membranes. No oral lesion. NECK: Supple. No JVD appreciated. No carotid bruit. LUNGS: Clear to auscultation bilaterally. No wheezing, rales, or rhonchi. HEART: S1 and S2 present. Regular rate and rhythm. No murmurs, rubs, or gallops appreciated. ABDOMEN: Soft. Mild tenderness in the suprapubic region. No rebound or guarding. No costovertebral angle tenderness. EXTREMITIES: No edema or calf tenderness. NEUROLOGIC: Grossly nonfocal. Moves all 4 extremities. PSYCHIATRY: Alert, awake, and oriented x3. SKIN: Warm and dry. LYMPH NODES: No palpable lymph nodes in the neck. PERIPHERAL VASCULAR: Radial pulses are palpable bilaterally. MUSCULOSKELETAL: No joint swelling tenderness. LABORATORY FINDINGS: WBC 14.1 with hemoglobin 13.8, hematocrit 44, and platelet count 228. Troponin negative. Sodium 138, potassium 4.5, chloride 102, bicarbonate 26, BUN is 10 with a creatinine 1.2. LFTs in the normal range. DIAGNOSTIC DATA: EKG by my review as discussed above. CT scan of the abdomen and pelvis noncontrast at [facility] as discussed above. IMPRESSION: 1. Chest discomfort consistent with unstable angina. The patient is currently on nitroglycerin drip. 2. Hypertensive emergency, on nitroglycerin drip. 3. Recurrent chest pain with recent cardiac catheterization. 4. Obesity with a BMI of 34. 5. Chronic low back pain. 6. Bipolar disorder. 7. History of tobacco abuse. 8. Cannabis abuse. 9. History of medication noncompliance in the past. 10. Chronic leukocytosis, unlikely to be infectious. PLAN: The patient will be monitored in the intensive care unit due to nitroglycerin drip. Cardiology will be consulted. We will continue carvedilol with lisinopril, aspirin and statins. We will keep him n.p.o. for now. Recheck labs in a.m. Plan of care was discussed with the patient in detail. He stated understanding. Job ID: [id number]
[2019-01-21 11:20] LABS: Troponin I Less than 0.010 ng/mL (< 0.028)
--- NOTE | 2019-01-21 13:01 | CT ---
CT PULMONARY ANGIOGRAM WITH IV CONTRAST AND 3D MIP RECONSTRUCTIONS: DATE: 01/21/2019. PROVIDED CLINICAL HISTORY: Chest pain. FINDINGS: There is insufficient opacification of the pulmonary arterial system for exclusion of pulmonary embol i. There is no evidence for large central pulmonary embolus. The heart, pericardium, and great vess els demonstrate an unremarkable CT appearance for the phase of contrast in which the study was acquir ed. There is no evidence for thoracic lymph node enlargement. The airway appears patent and of normal ca liber. No pleural fluid or pneumothorax apparent. The lungs are free of significant opacity. The v isualized portions of the upper abdomen appear unremarkable. The osseous structures demonstrate no c oncerning osteoblastic or osteolytic lesions. IMPRESSION: Limited study without evidence for an acute abnormality. POS: [facility]
[2019-01-21] MEDS ORDERED: Iopamidol 370 76% 100 ML VIAL ONE (14:11)
[2019-01-21 15:32] VITALS: BMI 35.4
[2019-01-21] MEDS: Carvedilol 3.125 MG TAB PO SCH ×2 (15:57→17:22)
[2019-01-21] MEDS: Lisinopril 10 MG TAB PO SCH (15:58)
[2019-01-21] MEDS: Sodium Chloride 0.9% 500 ML IV SCH ×2 (15:59→20:46)
[2019-01-21] MEDS: Nitroglycerin 2% Ointment 1 INCH/1 GM Packet TOP SCH ×2 (17:23→22:24)
[2019-01-21] MEDS ORDERED: Amlodipine 10 MG TAB PO SCH (18:45)
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
[2019-01-21] MEDS ORDERED: Atorvastatin Calcium 10 MG TAB PO SCH (21:00)
--- NOTE | 2019-01-21 22:43 | CON ---
DATE OF CONSULTATION: 01/21/2019 INDICATION FOR CONSULTATION: A 43-year-old patient with chest pain and syncope. Please refer to the notes already dictated by the nurse practitioner for past medical history, social history, family history, review of systems, medications , and allergies. HISTORY OF PRESENT ILLNESS: This is a very pleasant 43-year-old patient who is actually incarcerated. He was recently in the hospital complaining of chest pain, underwent cardiac catheterization, and was found to have normal coronary arteries. He then presented again after he had been discharged, had gone back to the facility, was going to get his medications last night and had a teo syncopal episode. He says he had no forewarning. It was a witnessed syncopal episode. The guards there had noticed the patient and he then was brought back to the hospital for further evaluation. Previously, he has had 3 to 4 different episodes of syncope standing over the last year or two. This last time, he had no forewarning. Previously, he has had some complaints of lightheadedness or palpitations, but this last event did not have any forewarning and had a teo syncopal episode. His EKG does not show any significant changes. He has a normal sinus rhythm. I did not notice any arrhythmias or any indication that he had any pauses. Otherwise, he remains stable and as noted he did have a cardiac catheterization on 01/06/2019 and was found to have normal coronary arteries. PHYSICAL EXAMINATION: GENERAL: Reveals a well-developed, well-nourished gentleman, in no acute distress. VITAL SIGNS: Blood pressure is slightly elevated at 141/86, early was 176/123. He has not received his a.m. medications yet. Respiratory rate 14. He is afebrile. Heart rate is 90. HEENT: Shows head to be normocephalic and atraumatic. Carotid pulses are present. There were no bruits. No JVD. The thyroid was not enlarged. Oral mucosa was pink and moist. CHEST: Clear to auscultation without rales, rhonchi, or wheezing. CARDIOVASCULAR: Reveals a regular rate and rhythm with normal S1, S2. There is no S3 or S4. There were no significant murmurs, heaves, thrills, bruits, or rubs. ABDOMEN: Soft, nontender. Positive bowel sounds are present. There is no organomegaly or masses noted. Femoral pulses are present. EXTREMITIES: No clubbing, cyanosis, or edema. Pedal pulses are present. NEUROLOGIC: The patient appears to be intact. SKIN: Warm and dry. There are no other significant abnormalities noted. LABORATORY DATA: Also is unremarkable. Potassium is 4.1, this was on 2018, I do not see a recent otherwise, no BNP was performed since his last admission on 01/06. His hemoglobin was 14.6 on 01/07. IMPRESSION: 1. A 43-year-old patient with syncope of uncertain etiology. This is the fourth or fifth episode of syncope this gentleman has had. At this time, he had no forewarning, actually it seems he may be standing during every time he has had a syncopal episode when he can recall, it may be orthostatic. However, he did not have any pre-warning this time and i would suspect that he would have some dizziness or lightheadedness prior to having a syncopal episode if this was due to orthostasis.. If it was due to hypotension, he may need to undergo an implantable loop recorder. I leave this up to the discretion of Dr. Pringle when he visits with the patient tomorrow. 2. History of chest pain, but normal coronary arteries by cardiac catheterization less than 2 to 3 weeks ago. 3. Hypertension. We will resume his medications. 4. Bipolar disorder. This will be dealt with by the Primary Care Service. Job ID: [id number] MTDD
[2019-01-22 05:36] LABS: #Basophils 0.1 thou/uL (0.0-0.2); #Eosinphils 0.3 thou/uL (0.0-0.7); #Lymphocytes 4.3 thou/uL (1.20-3.40); #Neutrophils 5.8 thou/uL (1.40-6.50); %Basophils 1.2 % (0.0-1.0); %Eosinophils 2.3 % (0.0-10.0); %Lymphocytes 37.4 % (21.0-51.0); %Monocytes 8.4 % (0.0-10.0); %Neutrophils 50.8 % (42.0-75.0); Mean Corpuscular HGB CONC 32.1 g/dL (32.0-36.0); Mean Corpuscular Hemoglobin 29.2 pg (27.0-31.0); Mean Corpuscular Volume 91.2 fL (78.0-98.0); Mean Platelet Volume 8.6 fL (7.4-10.4); Platelet Count 196 thou/uL (130-400); RBC Distribution Width 12.7 % (11.5-14.5); Red Blood Cell (RBC) Count 4.44 mill/uL (4.70-6.10); White Blood Cell (WBC) Count 11.4 thou/uL (4.8-10.8)
[2019-01-22] MEDS: Nitroglycerin 2% Ointment 1 INCH/1 GM Packet TOP SCH (05:54)
[2019-01-22 05:57] LABS: Anion Gap 11 mmol/L (10-20); BUN (Urea Nitrogen) 12 mg/dL (8.9-20.6); Calc. Creatinine Clearance 145 mL/min (70-130); Calcium 8.8 mg/dL (7.8-10.44); Carbon Dioxide 28 mmol/L (22-29); Chloride 102 mmol/L (98-107); Estimated GFR-MDRD 88; Glucose 89 mg/dL (70-105); Sodium 137 mmol/L (136-145)
[2019-01-22] MEDS ORDERED: Amlodipine 10 MG TAB PO SCH (09:00)
[2019-01-22] MEDS: Lisinopril 10 MG TAB PO SCH (09:03)
[2019-01-22] MEDS: Carvedilol 3.125 MG TAB PO SCH (09:04)
[2019-01-22] MEDS ORDERED: Lidocaine 1% PF 5 ML VIAL ONE (09:28)
[2019-01-22] MEDS ORDERED: Lidocaine 1% w/Epinephrine 1:100K 20 ML VIAL ONE (09:30)
--- NOTE | 2019-01-22 10:17 | PDOC.CTH ---
Cardiology Progress Note - Subjective Pt. seen and eval. no new events. - Objective Vital Signs Temp Pulse Resp BP BP BP BP 01/22/19 07:05 97.8 F 66 16 153/97 H 139/81 155/79 H 01/22/19 04:11 98.2 F 90 12 143/72 H 01/21/19 23:18 98.5 F 76 16 146/100 H Pulse Ox 01/22/19 07:05 97 01/22/19 04:11 98 01/21/19 23:18 97 Weight 261 lb 01/21/19 01/22/19 01/23/19 06:59 06:59 06:59 Intake Total 1260 120 Output Total 800 Balance 460 120 - Physical Examination General/Neuro: alert & oriented x3 Neck: no JVD present Lungs: CTA Heart: RRR Abdomen: NT/ND, soft - Telemetry Telemetry Rhythm: NSR - Labs Result Diagrams: 01/22/19 04:52 01/22/19 04:51 Troponin/CKMB Troponin I Less than 0.010 ng/mL (< 0.028) 01/21/19 10:49 - Assessment/Plan 1. Syncope: plan for Linq implant this AM. Okay to d/c after the procedure. 2. Chest pain: non-cardiac. Normal cors.
[2019-01-22 10:28] VITALS: TEMP 97.3
[2019-01-22 11:37] VITALS: BP 112/82
--- NOTE | 2019-01-22 23:38 | DIS ---
DATE OF ADMISSION: 01/21/2019 DATE OF DISCHARGE: 01/22/2019 ALLERGIES: NO KNOWN DRUG ALLERGIES. CHIEF COMPLAINT: Chest discomfort and syncope. FINAL DIAGNOSES: 1. Syncope, unclear etiology, status post implantable loop recorder. 2. Atypical chest pain, acute coronary syndrome ruled out. Left heart catheterization 2 weeks ago showed normal coronary arteries and normal ejection fraction. 3. Hypertensive urgency, resolved. 4. Bipolar disorder. PROCEDURE PERFORMED: [employer] LINQ implantable loop recorder implanted by Dr. Azevedo. LABORATORY RESULTS: White blood cell count 11.4, hemoglobin 13, hematocrit 40.5. Sodium 137, potassium 4.0, BUN 12, and creatinine 1.12. Troponin negative x2. BNP less than 10. IMAGING RESULTS: CTA of the chest, it was a limited study without evidence for an acute abnormality. No evidence for large central pulmonary embolus. CONSULTATION: Dr. Azevedo of Cardiology. HOSPITAL COURSE: The patient is a 43-year-old male, who is currently incarcerated, with past medical history significant for hypertension and bipolar disorder, who presented to the emergency room with complaints of chest discomfort along with a syncopal episode at this facility. Recent cardiac workup at this facility included a left heart catheterization [address] weeks [address] performed [address] Orozco, which showed normal coronary arteries and an EF of 70%. Given this history, the patient presented to the [facility] with complaints of chest discomfort that began around midnight. He describes it as pressure with radiation to the left arm. He became diaphoretic and had a syncopal episode. He reports 5 to 6 prior syncopal episodes in the past month or so. He also had some lower abdominal discomfort with a negative contrast CT scan at the [facility]. His troponins were negative. EKG showed nonspecific ST and T-wave changes. His blood pressure was significantly elevated at over 200 systolic on his arrival. He was transferred to our facility for higher level of care. He was seen in consultation with Dr. Azevedo, who did recommend an implantable loop recorder to rule out an arrhythmogenic cause for syncope. His orthostatics were negative. This morning, he underwent successful loop recorder implantation. He tolerated the procedure well. Per Cardiology, he was cleared for discharge. He had his home blood pressure medications restarted, with good response in his blood pressure. This morning, he denies any chest pain or shortness of breath. He has been non-syncopal since his arrival here. He will continue follow up with Cardiology. PHYSICAL EXAMINATION: VITAL SIGNS: Blood pressure 143/72, temperature 98.2, pulse is 90, and O2 saturation 97% on room air. GENERAL: The patient is a mildly obese male, in no acute distress. HEENT: Atraumatic and normocephalic. Eye movement intact. NECK: Supple. No JVD. No carotid bruits. No lymphadenopathy. RESPIRATORY: Regular respiratory rate and pattern, overall clear to auscultation bilaterally. CV: S1, S2. Regular rate and rhythm. No appreciable murmurs, rubs, or gallops. GI: Soft, nontender, normal bowel sounds. PERIPHERAL VASCULAR: No lower extremity edema. +2 DP pulses bilaterally. MUSCULOSKELETAL: No joint effusion or swelling. NEUROLOGIC: Awake and alert. Cranial nerves 2 through 12 grossly intact. No focal deficits. SKIN: Warm and dry. No appreciable rashes or discoloration. CONDITION AT DISCHARGE: Stable. DISCHARGE MEDICATIONS: 1. Amlodipine 10 mg one p.o. daily. 2. Aspirin 81 mg daily. 3. Soma 250 mg tablet 250 mg p.o. q.i.d. 4. Hydrocodone 5/325 one tablet p.o. q.6 p.r.n. 5. Lisinopril 20 mg tablet 10 mg p.o. daily. 6. Atorvastatin 10 mg p.o. at bedtime. 7. Carvedilol 3.125 mg tablet one tablet p.o. b.i.d. 8. Pepcid 20 mg tablet one tablet p.o. b.i.d. DISCHARGE DISPOSITION: [facility], the patient is currently incarcerated. PLAN: The patient will continue his blood pressure medication regimen. He will be followed through his LINQ recordable device for any bradyarrhythmia or arrhythmogenic cause for syncope. Continue low-sodium diet and risk factor modification. Care discussed with Dr. Franco, who agrees with plan. Job ID: [id number]
--- NOTE | 2019-01-23 14:06 | CCL ---
CARDIOLOGY PROCEDURE NOTE: Date: 01/22/19 This is a 43-year-old patient with syncopal episodes. He was advised to undergo an implantable loop r ecorder to determinate the etiology of the syncopal episodes, if this was due to arrhythmias or sever e bradycardia or pauses. The patient was taken to the recovery area where he was prepped and draped in the sterile fashion, an d underwent the procedure without any difficulties or complications. The device was LINQ, which was e asily implanted underneath the left chest area at about the 3rd-4th intercostal space. There were no difficulties or complications encountered. The full dictated note will be in the chart.
== END 2019-01-22 14:14 ==
LOC: ERS 04:03 → ERHOLD 09:16 → 2SW 14:35
PROVIDERS: ADMIT Internal Medicine; ATTEND Internal Medicine
PROC: 0JH632Z Insertion of Monitoring Device into Chest Subcutaneous Tissue and Fascia, Percutaneous Approach (ICD-10-PCS; principal; 2019-01-22)
DX: R55 Syncope and collapse (principal); R07.89 Other chest pain; I20.0 Unstable angina; I10 Essential (primary) hypertension; G89.29 Other chronic pain; M54.5 Low back pain; F31.9 Bipolar disorder, unspecified; F17.210 Nicotine dependence, cigarettes, uncomplicated; F12.11 Cannabis abuse, in remission; I16.1 Hypertensive emergency; D72.829 Elevated white blood cell count, unspecified; E66.9 Obesity, unspecified; Z68.35 Body mass index [BMI] 35.0-35.9, adult; Z79.82 Long term (current) use of aspirin; Z79.899 Other long term (current) drug therapy
CPT/HCPCS: 33285; 36415; 71275; 80048; 83880; 84484; 85025; 93005; 94760; 96361; 96365; 96366; C1764; G0378; J1650; J2001; Q9967